=== PATIENT | male | born 1990 | race Caucasian/White ===

== ENCOUNTER 2025-06-08 14:04 | Outpatient (REF) | payer OTHER, SELFPAY ==
--- OUTSIDE RECORDS SUMMARY | 2025-06-08 13:00 | XMS_ITS | Encounter Summary ---
Author Organization [employer] Address [address] [facility] [address] [place] [address] Care Team Providers Care Outside Plant Engineer Name Role Phone Herlinda Poole IN[employer] T[employer] CONSULTANT Primary Care Provider [phone] Encounter Details Date Type Department Care Team (Late st Contact Info) Description 06/08/2025 1:00 PM EDT Office Visit [facility] MEDICINE [address] [place], [place] [id number] Herlinda Poole FNP [address] [place] [address] Encounter for wellness examination in adult (Primary Dx); Dietary counseling; Exercise counseling; Snoring Social History Tobacco Use Types Packs/Day Years Used Date Smoking Tobacco: Every Day Cigarettes Passive Smoke Exposure: Current Smokeless Tobacco: Current Tobacco Cessation:Ready to Q uit: Not Asked; Counseling Given: Not Answered Depression Answer Date Recorded Patient Health Questionnaire-9 Score 11 06/08/2025 Patient Health Questionnaire-9 Score 11 06/08/2025 Last PHQ-9: Questionnaire Data Not on file 0 06/08/2025 Housing Stability Answer Date Recorded What is your housing situation today? I have blanca begum 06/01/[address] you li ve. Do you have problems with any of the following? None of the above 06/01/2025 Food Insecurity Answer Date Recorded Within the past 12 months, y ou worried that your food would run out before you got money to buy more: Never True 06/01/2025 Within the past 12 months,th e food you bought just didn't last and you didn't have enough money to get more: Never True 04/2025 Transportation Answer Date Recorded In the past 12 months, has l ack of transportation kept you from medical appts, meetings, work or from getting things needed for daily living? No 06/01/2025 Utilities Answer Date Recorded In the past 12 months, has t he electric, gas, oil or water company threatened to shut off services in your home? No 06/01/2025 Depression Answer Date Recorded Patient Health Questionnaire-2 Score 2 06/08/2025 Internet Access Answer Date Recorded Internet Access Q1 Yes 06/01/2025 Internet Access Q2 Not on file 06/01/2025 Sex and Gender Information Value Date Recorded Sex Assigned at Male 05/18/2025 11:44 AM EDT Legal Sex Male 11:42 AM EDT Gender Identity Male 05/18/2025 11:44 AM EDT Sexual Orientation Straight 06/04/2025 9: 09 AM EDT documented as of this encounter Last Filed Vital Signs Vital Sign Reading Time Taken Comments Blood Pressure 122/86 06/08/2025 1:09 PM EDT Pulse 71 06/08/2025 1:09 PM EDT Temperature 36.8 C (98.2 F) 06/08/2025 1:09 PM EDT Respiratory Rate 20 06/08/2025 1:09 PM EDT Oxygen Saturation 98% 06/08/2025 1:09 PM EDT Inhaled Oxygen Concentration - - Weight 112 kg (247 lb 2 oz) 06/08/2025 1:09 PM E DT Height 178.6 cm (5' 10.33 ) 06/08/2025 1:09 PM E DT Body Mass Index 35.13 06/08/2025 1:09 PM EDT documented in this encounter Functional Status * Over the past 2 weeks, how often have you been bothered by any of the following problems? Question Answer Date of Assessment Author Patient Health Questionnaire -2 Score 2 06/08/2025 2:23 PM EDT Sherita Ashraf MA * Little interest or pleasure in doing things Answer Date of Assessment Author Several days 06/08/2025 2:23 PM EDT Sherita Mcintosh MA * Feeling down, depressed, or hopeless Answer Date of Assessment Author Several days 06/08/2025 2:23 PM EDT Sherita Mcintosh MA * Trouble falling or staying asleep, or sleeping too much Answer Date of Assessment Author Several days 06/08/2025 2:23 PM EDT Sherita Mcintosh MA * Feeling tired or having little energy Answer Date of Assessment Author Nearly every day 06/08/2025 2:23 PM EDT Sherita Francis Ma, MA * Poor appetite or overeating Answer Date of Assessment Author Nearly every day 06/08/2025 2:23 PM EDT Sherita Francis Ma, MA * Feeling bad about yourself - or that you are a failure or have let yourself or your family down Answer Date of Assessment Author Several days 06/08/2025 2:23 PM EDT Sherita Mcintosh MA * Trouble concentrating on things, such as reading the newspaper or watching television Answer Date of Assessment Author Not at all 06/08/2025 2:23 PM EDT Sherita Mcintosh MA * Moving or speaking so slowly that other people could have noticed? Or the opposite - being so fidgety or restless that you have been moving around a lot more than usual. Answer Date of Assessment Author Several days 06/08/2025 2:23 PM EDT Sherita Mcintosh MA * Thoughts that you would be better off or hurting yourself in some way Answer Date of Assessment Author Not at all 06/08/2025 2:23 PM EDT Sherita Mcintosh MA * Patient Health Questionnaire-9 Score Answer Date of Assessment Author 11 06/08/2025 2:23 PM EDT Sherita Mcintosh MA * Over the last 2 weeks, how often have you been bothered by any of the following problems? Question Answer Date of Assessment Author Feeling nervous, anxious, or on edge 2 06/08/2025 2:23 PM EDT Sherita Ashraf MA Not being able to stop or control worrying 1 06/08/2025 2:23 PM EDT Sherita Ashraf MA Worrying too much about different things 2 06/08/2025 2:23 PM EDT Sherita Ashraf MA Trouble relaxing 2 06/08/2025 2:23 PM EDT Sherita Bah MA Being so restless that it is hard to sit still 2 06/08/2025 2:23 PM EDT Sherita Ashraf MA Becoming easily annoyed or irritable 1 06/08/2025 2:23 PM EDT Sherita Ashraf MA Feeling afraid as if somethi ng awful might happen 2 06/08/2025 2:23 PM EDT Sherita Ashraf MA JOSE R-7 Total Score 12 06/08/2025 2:23 PM EDT Sherita Ashraf MA documented as of this encounter Plan of Treatment Scheduled Orders Name Type Priority Associated Diagnoses Orde r Schedule Comprehensive Metabolic Panel Lab Routine Encounter for wellness examination in adult Expected: 06/08/2025 (Approximate), Expires: 06/07/2026 Hepatitis B Core Antibody, Total Lab Routine Encounter for wellness examination in adult Expected: 06/08/2025 (Approximate), Expires: 06/07/2026 TSH Lab Routine Encounter for wellness examination in adult Expected: 06/08/2025 (Approximate), Expires: 06/07/2026 Hepatitis B Surface Antibody, Qualitative Lab Routine Encounter for wellness examination in adult Expected: 06/08/2025 (Approximate), Expires: 06/07/2026 Hepatitis B surface antigen, EIA Lab Routine Encounter for wellness examination in adult Expected: 06/08/2025 (Approximate), Expires: 06/07/2026 Hepatitis C Antibody with Reflex to HCV, RNA, Quantitative, Real-Time PCR Lab Routine Encounter for wellness examination in adult Expected: 06/08/2025, Expires: 06/07/2026 CBC auto differential Lab Routine Encounter for wellness examination in adult Expected: 06/08/2025 (Approximate), Expires: 06/07/2026 HIV-1/2 Antigen and Antibodies, Fourth Generation, with Reflexes Lab Routine Encounter for wellness examination in adult Expected: 06/08/2025 (Approximate), Expires: 06/07/2026 Lipid Panel, Standard Lab Routine Encounter for wellness examination in adult Expected: 06/08/2025 (Approximate), Expires: 06/07/2026 Hemoglobin A1c Lab Routine Encounter for wellness examination in adult Expected: 06/08/2025 (Approximate), Expires: 06/07/2026 Chlamydia/N. Gonorrhoeae, PCR, Urine Lab Routine Encounter for wellness examination in adult Ordered: 06/08/2025 documented as of this encounter Visit Diagnoses Diagnosis Encounter for wellness examination in adult- Primary Dietary counseling Dietary surveillance and counseling Exercise counseling Snoring Other dyspnea and respiratory abnormality documented in this encounter Additional Health Concerns Assessment Noted Time PHQ-9 Depression Total Score: 025 2:23 PM EDT documented as of this encounter Care Teams Outside Plant Engineer Relationship Specialty Start Date End Date Herlinda Poole FNP [address] [place] [id number] PCP - General Family Medicine 06/04/25 documented as of this encounter
[2025-06-08 16:19] LABS: MANUAL DIFF FLAG NO
[2025-06-08 16:28] LABS: Hematocrit 43.0 % (42.0-52.0); Hemoglobin 14.4 g/dl (14.0-18.0); Imm Gran Abs Auto 0.03 X10*3/uL (0.00-0.03); Imm Gran Pct Auto 0.4 % (0.0-0.4); Lymphocytes Absolute Auto 1.9 X10*3/uL (1.2-4.9); Mean Corpuscular HGB Conc 33.5 g/dl (31.0-36.0); Mean Corpuscular Hemoglobin 30.6 pg (27.0-33.0); Mean Corpuscular Volume 91.3 fL (80.0-98.0); NRBC Abs Auto 0.000 X10*3/uL (0.0-0.012); NRBC Pct Auto 0.0 /100WBC (0.0-0.2); Platelet Count 196 X10*3/uL (160-400); Red Blood Count 4.71 X10*6/uL (4.60-5.80); White Blood Count 7.1 X10*3/uL (4.8-10.8)
[2025-06-08 16:34] LABS: Hemoglobin A1C 149.2872 umol/L; Total Hemoglobin (HGBA1C) 3746.9459 umol/L
[2025-06-08 16:47] LABS: Alanine Aminotransferase 34 U/L (0-40); Albumin Level 4.5 g/dL (3.5-5.0); Alkaline Phosphatase 91 U/L (39-117); Anion Gap 12 (12-20); Aspartate Amino Transferase 27 U/L (5-37); Blood Urea Nitrogen 13 mg/dL (9-16); Calcium 9.6 mg/dL (8.4-10.2); Carbon Dioxide 27 mmol/L (22-29); Chloride 105 mmol/L (96-108); Cholesterol 207 mg/dL (<200); Estimated Glomerular Filt Rate > 60; HDL Cholesterol 53 mg/dL (>40); Potassium 4.5 mmol/L (3.3-5.1); Sodium 139 mmol/L (135-145); Total Protein 7.8 g/dL (6.5-8.0); Triglycerides 77 mg/dL (<150)
[2025-06-08 17:03] LABS: Thyroid Stimulating Hormone 2.87 uIU/mL (0.32-4.0)
--- OUTSIDE RECORDS SUMMARY | 2025-06-08 19:25 | XMS_ITS | Encounter Summary ---
Author Organization [employer] Address [address] [facility] [address] [place] [address] Care Team Providers Care Environment Friendly Landscape Designer Name Role Phone Herlinda Poole [facility] Primary Care Provider [phone] Reason for Visit * Reason Onset Date Comments CHARTPREP 06/04/2025 Encounter Details Date Type Department Care Team ([facility] st Contact Info) Description 06/04/2025 Telephone [facility] MEDICINE [address] [place] [address] Herlinda Poole FNP [address] [place] [address] CHARTPREP Social History Tobacco Use Types Packs/Day Years Used Date Smoking Tobacco: Never Assessed Housing Stability Answer Date Recorded What is your housing situation today? I have blancajh begum 06/01/[address] you [...] off services in your home? No 06/01/2025 Internet Access Answer Date Recorded Internet Access Q1 Yes 06/01/2025 Internet Access Q2 Not on file 06/01/2025 Sex and Gender Information Value Date Recorded Sex Assigned at Male 05/18/2025 11:44 AM EDT Legal Sex Male 11:42 AM EDT Gender Identity Male 05/18/2025 11:44 AM EDT Sexual Orientation Straight 06/04/2025 9: 09 AM EDT documented as of this encounter Miscellaneous Notes * Telephone Encounter - Javier Murdock MA - 06/04/2025 11:44 AM EDT Chart Prep Labs: not applicable Images: not applicable Referrals: not applicable Vaccines due: Covid, Flu, Tdap, Hep B, and HPV Screenings: not applicable Overdue care gaps: SBIRT, PHQ-9, JOSE R-7, Disability screen, and Tobacco documented in this encounter Plan of Treatment Not on file documented as of this encounter Visit Diagnoses Not on filedocumented in this encounter Care Teams Environment Friendly Landscape Designer Relationship Specialty Start Date End Date Herlinda Poole FNP [address] [place] [id number] PCP - General Family Medicine 06/04/25 documented as of this encounter
--- OUTSIDE RECORDS SUMMARY | 2025-06-08 19:25 | XMS_ITS | Clinical Summary ---
Author Organization [facility] Address [address] [facility] [address] [place] [address] Care Team Providers Care Tongue Trimmer Name Role Phone Herlinda Poole Primary Care Provider [phone] Allergies No known active allergies Medications No known medications Active Problems No known active problems Encounters Date Type Department Care Team Description 06/08/2025 1:00 PM EDT Office Visit [address] [address] Herlinda Poole FNP Encounter for wellness examination in adult (Primary Dx); Dietary counseling; Exercise counseling; Snoring 06/08/2025 Travel 06/04/[address] [address] Herlinda Poole FNP CHARTPREP 06/01/2025 Patient Outreach [address] [address] Herlinda Poole FNP Pre-visit Planning (SDOH screening is negative , Tobacco screening is positive ) from Last 3 Months Family History Medical History Relation Name Comments Hypertension Brother No Known Problems Father Arthritis Maternal Grandmother Heart disease Maternal Grandmother No Known Problems Mother Relation Name Status Comments Brother Father Maternal Grandmother Mother Social History Tobacco Use Types Packs/Day Years [...] Orientation Straight 06/04/2025 9: 09 AM EDT Last Filed Vital Signs Vital Sign Reading [...] Mass Index 35.13 06/08/2025 1:09 PM EDT Plan of Treatment Health Maintenance Due Date Last Done Comments HIV Screening 1989 Lipid Panel 1989 Disability Screening 1989 Alcohol/Substance Use Screening 2001 Family Planning (PISQ) 2004 HPV Vaccines (1 - Male 3-dos e series) 2004 Hepatitis C Screening 2007 DTaP/Tdap/Td Vaccines (1 - Tdap) 2008 Hepatitis B Vaccines (1 of 3 - 19+ 3-dose series) 2008 Pneumococcal Vaccine: Pediatrics (0 to 5 Years) and At-Risk Patients (6 to 49) Years (1 of 2 - PCV) 2008 COVID-19 Vaccine (1 - 2023-2 5 season) 2025 Influenza Vaccine (#1) 2025 Depression Monitoring 12/06/2025 06/08/2025 , 06/08/2025 SDOH Screening 06/01/2026 06/01/2025 Tobacco Screening 06/08/2026 06/08/2025 Zoster Vaccines (1 of 2) 2039 RSV Patients and Patients Aged 60 years or older (1 - 1-dose 75+ series) 2064 HIB Vaccines Aged Out No longer eligi ble based on patient's age to complete this topic Hepatitis A Vaccines Aged Out No long er eligible based on patient's age to complete this topic IPV Vaccines Aged Out No longer eligi ble based on patient's age to complete this topic Meningococcal B Vaccine Aged Out No l onger eligible based on patient's age to complete this topic Meningococcal Vaccine Aged Out No donny patricia eligible based on patient's age to complete this topic RSV under 20 months Aged Out No longe r eligible based on patient's age to complete this topic Rotavirus Vaccines Aged Out No longer eligible based on patient's age to complete this topic Insurance [facility] 2 Care Teams Tongue Trimmer Relationship Specialty Start Date End Date Herlinda Poole FNP [address] [place] [id number] PCP - General Family Medicine 06/04/25
--- OUTSIDE RECORDS SUMMARY | 2025-06-08 19:26 | XMS_ITS | Encounter Summary ---
Author Organization [employer] Address [address] [facility] [address] [place] [address] Care Team Providers Care Meat Pumper Name Role Phone Herlinda Poole [facility] Primary Care Provider [phone] Encounter Details Date Type Department Care Team (Latest Contact Info) Description 06/08/2025 Travel Social History Tobacco Use Types Packs/Day Years Used Date Smoking Tobacco: Every Day Cigarettes Passive Smoke Exposure: Current Smokeless Tobacco: Current Depression Answer Date Recorded Patient Health Questionnaire-9 [...] AM EDT documented as of this encounter Functional Status * Over the [...] as of this encounter Plan of Treatment Not on file documented as of this encounter Visit Diagnoses Not on filedocumented in this encounter Additional Health Concerns Assessment Noted Time PHQ-9 Depression Total Score: 025 2:23 PM EDT documented as of this encounter Care Teams Meat Pumper Relationship Specialty Start Date End Date Herlinda Poole FNP [address] [place] [address] PCP - General Family Medicine 06/04/25 documented as of this encounter
[2025-06-08 20:41] LABS: CT PCR Urine NOT DETECTED (Not Detect.); NG PCR Urine NOT DETECTED (Not Detect.)
[2025-06-09 08:45] LABS: HBS Num1 19.26 mIU/mL (0-7.99); HBc Num1 0.09 S/CO (0.00-0.79); HBsAGNum1 0.34 S/CO (0.00-0.99); HIV Num 1 0.05 S/CO (0.00-0.99); Hepatitis B Surface Antigen Negative (Negative); ~HepC Num1 0.13 S/CO (0.00-0.79); ~Hepatitis B Surface Antibody REACTIVE (Nonreactive); ~Hepatitis C Antibody Nonreactive (Nonreactive)
== END 2025-06-08 14:05 | disposition home or self-care (01) ==
LOC: HO.HHCL 14:04
PROVIDERS: PCP Nurse Practitioner Family; Visit Provider Nurse Practitioner Family
DX: Z11.4 Encounter for screening for human immunodeficiency virus [HIV] (principal); Z11.59 Encounter for screening for other viral diseases; Z20.2 Contact with and (suspected) exposure to infections with a predominantly sexual mode of transmission
CPT/HCPCS: 80053; 80061; 83036; 84443; 85025; 86704; 86706; 86803; 87340; 87389; 87491; 87591